=== PATIENT | male | born 1990 | race American Indian/Alaskan Native ===

== ENCOUNTER 2018-06-01 00:33 | Emergency (ER) | payer MEDICARE, MEDICAID ==
[2018-06-01 00:39] VITALS: BP 148/87
[2018-06-01 01:48] LABS: Basophils # (Auto) 0.1 K/mm3 (0.0-0.1); Basophils % (Auto) 0.9 % (0.0-1.8); Eosinophils # (Auto) 0.2 K/mm3 (0.0-0.4); Eosinophils % (Auto) 2.6 % (0.0-4.3); Hematocrit 42.9 % (35.5-45.6); Hemoglobin 14.1 gm/dl (11.8-15.2); Lymphocytes % (Auto) 40.2 % (13.4-35.0); Mean Corpuscular HGB Conc 33 % (32-34); Mean Corpuscular Volume 88 fl (84-94); Monocytes # (Auto) 0.4 K/mm3 (0.0-0.8); Platelet Count 223 K/mm3 (140-440); Red Cell Distribution Width 14.5 % (13.2-15.2)
[2018-06-01 01:59] LABS: BUN/Creatinine Ratio 10; Blood Urea Nitrogen 13 mg/dL (9-20); Calcium 9.5 mg/dL (8.4-10.2); Hemolysis Index 8
[2018-06-01 02:01] LABS: Bilirubin,Urine NEG (Negative); Blood,Urine NEG (Negative); Color,Urine Yellow (Yellow); Mucus,Urine 2+ /HPF; Sperm,Urine FEW /HPF (NP)
[2018-06-01 02:07] LABS: Amphetamine Screen,Urine PRESUMPTIVE NEGATIVE; Benzodiazepines Screen,Urine PRESUMPTIVE NEGATIVE; Methadone Screen,Urine PRESUMPTIVE NEGATIVE; Opiate Screen,Urine PRESUMPTIVE NEGATIVE
[2018-06-01 02:36] LABS: Cannabinoid Screen,Urine PRESUMPTIVE POSITIVE; Cocaine Screen,Urine PRESUMPTIVE POSITIVE
== END 2018-06-01 01:30 | disposition left against medical advice (07) ==
LOC: ED 00:33
DX: F32.9 Major depressive disorder, single episode, unspecified (principal); Z53.21 Procedure and treatment not carried out due to patient leaving prior to being seen by health care provider
CPT/HCPCS: 36415; 80048; 80307; 81001; 85025; G0480; 80320

== ENCOUNTER 2019-02-01 10:41 | Outpatient (CLI) | payer MEDICARE ==
[2019-02-01 11:43] LABS: BUN/Creatinine Ratio 8; Blood Urea Nitrogen 8 mg/dL (9-20); Calcium 8.9 mg/dL (8.4-10.2); Hemolysis Index 4
== END 2019-02-01 10:42 | disposition home or self-care (01) ==
LOC: LAB 10:41
PROVIDERS: ATTEND Clinical Nurse Specialist Psychiatric/Mental Health
DX: F31.9 Bipolar disorder, unspecified (principal)
CPT/HCPCS: 36415; 80048; 80178; 84443

== ENCOUNTER 2020-10-08 01:29 | Emergency (ER) | payer MEDICARE ==
[2020-10-08] MEDS ORDERED: LORazepam 2 MG/ML VIAL IM PRN (01:51)
[2020-10-08] MEDS ORDERED: diphenhydrAMINE 25 MG CAP PO PRN (01:51)
[2020-10-08] MEDS ORDERED: HALOPERIDOL LACTATE 5 MG/1 ML INJ IM PRN (01:51)
--- NOTE | 2020-10-08 01:57 | Emergency Department Report ---
ED General Adult HPI - General Chief complaint: Psych Stated complaint: psych PUI?: No Time Seen by Provider: 10/08/20 01:34 Source: patient, family, police, RN notes reviewed Mode of arrival: Wheelchair Limitations: Other (Acute psychosis and disorganized behavior) - History of Present Illness Initial comments: The patient was evaluated in the emergency department for symptoms described in the history of present illness. He/she was evaluated in the context of the global COVID-19 pandemic, which necessitated consideration that the patient might be at risk for infection with the virus that causes COVID-19. Institutional protocols and algorithms that pertain to the evaluation of patients at risk for COVID-19 are in a state of rapid change based on information released by regulatory bodies including the CDC and federal and state organizations. These policies and algorithms were followed during the patient's care in the emergency department. Please note that these policies, procedures and recommendations changed on a rapid basis. The patient is a 30-year-old gentleman. He is brought to the hospital by local police department on a 1013. The patient is not known to myself previously. History obtained from police matron, patient and his mother, who provides the bulk of the history. Patient's mother is Ms. Jin; [phone] Patient's past medical history includes HIV positive, on antiviral therapy and Biktarvy, reports undetectable viral load, also has a history of dissociative identity disorder, on lithium, Latuda, and trazodone. Patient's mother contacted 911 because the patient was very angry today, and throwing things. She reports that over the past few months, patient has not taken his psychiatric medication, and he appears to be cutting at home, throwing objects, getting angry, becoming paranoid, and becoming delusional. He also has thoughts of grandeur as per his mother. She reports the patient has stopped taking his psychiatric medications, hold because he thinks he knows best." His mother specifically tell me that she is concerned that the patient is a danger to himself and other people. She would not be comfortable with the patient coming back to the house tonight. Police Department were contacted, attempted to reason with the patient, and had to escalate to force, and taser. Police Department told me that the patient is currently under arrest, for trespassing. His mother indicates the symptoms have been gradually getting worse. The patient himself does not describe qualitative nature of symptoms, exacerbating factors, relieving factors or aggravating factors. His mother states no medical symptoms, no concern for overdose, although he has attempted suicide in the past a few times. She also reports the patient completed his COVID-19 vaccination series, on September 05, with the Pfizer vaccination. Please department tell me they have removed all taser barbs. -: Gradual - Related Data Allergies Allergy/AdvReac Type Severity Reaction Status Date / Time haloperidol [From Haldol] Allergy Unknown Verified 10/08/20 11:40 ziprasidone [From Geodon] Allergy Unknown Verified 10/08/20 11:40 ED Review of Systems ROS: Stated complaint: MEDICAL CLEARANCE Other details as noted in HPI Comment: Per mother Constitutional: denies: fever Respiratory: denies: cough Cardiovascular: denies: syncope Gastrointestinal: denies: nausea, vomiting, diarrhea Genitourinary: denies: frequency Psychiatric: as per HPI, anxiety ED Past Medical Hx - Social History Smoking Status: Current Every Day Smoker Substance Use Type: Alcohol ED Physical Exam - General General appearance: alert, anxious, in distress, obese - Head Head exam: Present: atraumatic, normocephalic - Eye Eye exam: Present: normal appearance, EOMI. Absent: nystagmus - ENT ENT exam: Present: normal exam, normal orophraynx, mucous membranes moist, normal external ear exam - Neck Neck exam: Present: normal inspection, full ROM. Absent: tenderness, meningismus - Respiratory Respiratory exam: Present: normal lung sounds bilaterally. Absent: respiratory distress, wheezes, rales, rhonchi, stridor, decreased breath sounds - Cardiovascular Cardiovascular Exam: Present: regular rate, normal rhythm, normal heart sounds. Absent: bradycardia, tachycardia, irregular rhythm, systolic murmur, diastolic murmur, rubs, gallop - GI/Abdominal GI/Abdominal exam: Present: soft. Absent: distended, tenderness, guarding, rebound, rigid, pulsatile mass - Rectal Rectal exam: Present: deferred - Extremities Exam Extremities exam: Present: normal inspection, full ROM, other (2+ pulses noted in the bilateral upper and lower extremities. There is no palpable cord. negative Homans sign. Muscular compartments are soft. The pelvis is stable.). Absent: pedal edema, calf tenderness - Back Exam Back exam: Present: normal inspection, full ROM. Absent: tenderness, CVA tend erness (R), CVA tenderness (L), paraspinal tenderness, vertebral tenderness - Neurological Exam Neurological exam: Present: alert, other (No facial droop. Tongue midline. Extraocular movements intact bilaterally. Facial sensation intact to light touch in V1, V2, V3 distribution bilaterally. 5 and a 5 strength in 4 extremities. Sensation intact to light touch in 4 extremities.) - Psychiatric Psychiatric exam: Present: agitated, anxious - Skin Skin exam: Present: warm, dry, intact, normal color. Absent: rash ED Course Vital Signs 10/08/20 10/08/20 10/08/20 02:21 12:42 20:27 Temperature 98.7 F 98.0 F 98.0 F Pulse Rate 105 H 88 98 H Respiratory 22 20 18 Rate Blood Pressure 115/70 112/65 131/91 [Left] O2 Sat by Pulse 100 98 98 Oximetry - Reevaluation(s) Reevaluation #1: 10/08/20 01:56 Differential diagnosis, including but not limited to: Medical clearance for psychiatric admission/evaluation, dissociative identity disorder, medical clearance for incarceration, personality disorder Assessment and plan: 30-year-old gentleman, who as per collateral information from mother, has not been taking his psychiatric medications, is violent, throwing objects, ny, paranoid, delusional, believes that people are watching him and chasing him, has thoughts of grandeur, and whom mother specifically is concerned that he is danger to himself and other people. Hold status ordered. As needed orders placed. Appropriate laboratory studies ordered. Mental health consultation requested. Have requested that nursing team reconcile home medications. Reevaluation #2: 10/08/20 04:13 Laboratory studies are unremarkable. Urinalysis is pending. Patient does not appear to have an immediate medical contraindication to psychiatric admission, evaluation, consultation and placement. Care was transferred to the [facility] ER physician to follow-up on urinalysis. ED Medical Decision Making - Lab Data Result diagrams: 10/08/20 03:09 10/08/20 03:09 Vital Signs 10/08/20 02:21 Temperature 98.7 F Pulse Rate 105 H Respiratory 22 Rate Blood Pressure 115/70 [Left] O2 Sat by Pulse 100 Oximetry Lab Results 10/08/20 10/08/20 10/08/20 Range/Units 03:09 03:09 03:09 WBC 13.3 H (4.5-11.0) K/mm3 RBC 4.68 (3.65-5.03) M/mm3 Hgb 13.4 (11.8-15.2) gm/dl Hct 40.7 (35.5-45.6) % MCV 87 (84-94) fl MCH 29 (28-32) pg MCHC 33 (32-34) % RDW 15.0 (13.2-15.2) % Plt Count 292 (140-440) K/mm3 Sodium 137 (137-145) mmol/L Potassium 3.6 (3.6-5.0) mmol/L Chloride 103.7 (98-107) mmol/L Carbon Dioxide 22 (22-30) mmol/L Anion Gap 15 mmol/L BUN 8 L (9-20) mg/dL Creatinine 1.2 (0.8-1.3) mg/dL Estimated GFR > 60 ml/min BUN/Creatinine Ratio 7 % Glucose 87 (75-100) mg/dL Calcium 8.8 (8.4-10.2) mg/dL Magnesium 2.30 (1.7-2.3) mg/dL Total Creatine Kinase 544 H (55-170) units/L Salicylates < 0.3 L (2.8-20.0) mg/dL Acetaminophen (10.0-30.0) ug/mL [place] 0.2 (0.0-1.2) mmol/L Plasma/Serum Alcohol (0-0.07) % 10/08/20 10/08/20 Range/Units 03:09 03:09 WBC (4.5-11.0) K/mm3 RBC (3.65-5.03) M/mm3 Hgb (11.8-15.2) gm/dl Hct (35.5-45.6) % MCV (84-94) fl MCH (28-32) pg MCHC (32-34) % RDW (13.2-15.2) % Plt Count (140-440) K/mm3 Sodium (137-145) mmol/L Potassium (3.6-5.0) mmol/L Chloride (98-107) mmol/L Carbon Dioxide (22-30) mmol/L Anion Gap mmol/L BUN (9-20) mg/dL Creatinine (0.8-1.3) mg/dL Estimated GFR ml/min BUN/Creatinine Ratio % Glucose (75-100) mg/dL Calcium (8.4-10.2) mg/dL Magnesium (1.7-2.3) mg/dL Total Creatine Kinase (55-170) units/L Salicylates (2.8-20.0) mg/dL Acetaminophen 5.0 L (10.0-30.0) ug/mL [place] (0.0-1.2) mmol/L Plasma/Serum Alcohol < 0.01 (0-0.07) % Critical care attestation.: If time is entered above; I have spent that time in minutes in the direct care of this critically ill patient, excluding procedure time. ED Disposition Clinical Impression: Medical clearance for psychiatric admission, Acute schizophrenia Disposition: [id number]/TX-[id number] PSY HOSP/PSY UNIT Is pt being admited?: No Does the pt Need Aspirin: No Condition: Good Referrals: PRIMARY CARE, [Primary Care Provider] - 3-5 Days
[2020-10-08] MEDS ORDERED: LORazepam 1 MG TAB PO ONE (01:58)
[2020-10-08 03:17] LABS: Hematocrit 40.7 % (35.5-45.6); Hemoglobin 13.4 gm/dl (11.8-15.2); Mean Corpuscular HGB Conc 33 % (32-34); Mean Corpuscular Volume 87 fl (84-94); Platelet Count 292 K/mm3 (140-440); Red Blood Count 4.68 M/mm3 (3.65-5.03)
[2020-10-08 03:41] LABS: BUN/Creatinine Ratio 7; Blood Urea Nitrogen 8 mg/dL (9-20); Calcium 8.8 mg/dL (8.4-10.2); Hemolysis Index 5
[2020-10-08] MEDS ORDERED: diphenhydrAMINE 50 MG/ML VIAL ONE (05:49)
--- NOTE | 2020-10-08 09:37 | Consultation ---
History of Present Illness - Reason for Consult Consult date: 10/08/20 Reason for consult: MHE Requesting physician: GERONIMO RODRIGUEZ - History of Present Psychiatric Illness Per ED Provider: The patient is a 30-year-old gentleman. He is brought to the hospital by local police department on a 1013. The patient is not known to m yself previously. History obtained from police clerk, patient and his mother, who provides the bulk of the history. Patient's mother is Ms. Jin; [phone] Patient's past medical history includes HIV positive, on antiviral therapy and Biktarvy, reports undetectable viral load, also has a history of dissociative identity disorder, on lithium, Latuda, and trazodone. Patient's mother conta cted 911 because the patient was very angry today, and throwing things. She reports that over the past few months, patient has not taken his psychiatric medication, and he appears to be cutting at home, throwing objects, getting angry, becoming paranoid, and becoming delusional. He also has thoughts of grandeur as per his mother. She reports the patient has stopped taking his psychiatric medications, hold because he thinks he knows best." His mother specifically tell me that she is concerned that the patient is a danger to himself and other people. She would not be comfortable with the patient coming back to the house tonight. Police Department were contacted, attempted to reason with the patient, and had to escalate to force, and taser. Police Department told me that the patient is currently under arrest, for trespassing. PSYCH HPI Patient is a 30-year-old single, currently unemployed -Filipino male with past psychiatric history of schizophrenia past medical history of HIV who currently resides with his brother brought to the ED accompanied by police due to aggressive and agitated behavior with worsening paranoia and delusion. Patient seen in isolation today patient appears to be half naked, and has urinated all over the floor. When asked patient why he is here patient still is complicated and keeps repeating that it is complicated up to 10 times in a loud manner. When also asked why he appeared on the floor patient stated that he had a bladder issue when he was a child, and then he decided to lock him up inside here without giving him access to use the restroom so he decided to do it on the floor. Patient appears very angry, uncooperative and loud, he presents as danger to other pt hence why he is in seclusion. PAST PSYCHIATRIC HISTORY Diagnoses: schizophrenia Suicide attempts or Self-harm behavior: yes Prior psychiatric hospitalizations: yes Substance Abuse history: n/a Previous psychiatric medications tried: yes Outpatient treatment: PAST MEDICAL HISTORY: HIV Family Psychiatric History: None reported or documented SOCIAL HISTORY Marital Status: single Living Arrangements: with mother Employment Status: unemployed Access to guns/weapons: n/a Education: n/a History of Abuse: n/a Legal History: n/a REVIEW OF SYSTEMS Constitutional: Negative for weight loss ENT: Negative for stridor Respiratory: Negative for cough or hemoptysis All other systems reviewed and are negative MENTAL STATUS EXAMINATION General Appearance and Behavior: Age appropriate, poor hygiene, not wearing appropriate clothes, poor eye contact, uncooperative with questioning. Cooperation: disengaged Psychomotor Behavior: Psychomotor agitation Mood: n/a Affect and affective range: euthymic, euphoric Thought Process: Illogical, echolalial Thought Content: delusional Speech: pressured, loud volume at times Intellectual Functioning: Average Suicidal Ideation: n/a Homicidal Ideation: n/a Impulse Control: Impaired Insight and Judgment: Limited insight and judgment Memory: impaired Attention: Divided attention impaired Orientation: Alert, Assessment and Plan - Psychiatric problem (1) Acute schizophrenia Current Visit: Yes Status: Acute F20.9 Treatment Plan Given history of medication non compliance, will start with geodon LAILA scheduled MEDICATIONS: Risks, benefits and alternatives of medications discussed with the patient, questions answered and consent obtained from patient. PSYCHOTHERAPY: Supportive psychotherapy provided MEDICAL: Per primary team DELIRIUM PRECAUTIONS: Please re-orient patient frequently, keep lights on during the day, and minimize benzodiazepines and opiates as these medications could worsen patient's confusion. INTERNET SPECIALIST: DISPOSITION: Do Recommend acute inpatient psychiatric hospitalization at this time. Case discussed with Dr. Crandall who agrees with current disposition LEGAL STATUS: 1013 FOLLOW-UP: Will follow Thank you for the consult. Please contact with any questions and/or concerns. Medications and Allergies Allergies Allergy/AdvReac Type Severity Reaction Status Date / Time No Known Allergies Allergy Unverified 06/01/18 01:15 Active Meds: Active Medications Diphenhydramine HCl (Diphenhydramine 25 Mg Cap) 50 mg PO QHS PRN PRN Reason: Insomnia Haloperidol Lactate (Haloperidol Lactate 5 Mg/1 Ml Inj) 5 mg IM Q6HR PRN PRN Reason: Agitation Lorazepam (Lorazepam 2 Mg/Ml Vial) 2 mg IM Q4HR PRN PRN Reason: Agitation Mental Status Exam - Vital signs Last Vital Signs Temp 98.7 F 10/08/20 02:21 Pulse 105 H 10/08/20 02:21 Resp 22 10/08/20 02:21 BP 115/70 10/08/20 02:21 Pulse Ox 100 10/08/20 02:21 Results Result Diagrams: 10/08/20 03:09 10/08/20 03:09 Abnormal lab results 10/08/20 10/08/20 10/08/20 Range/Units 03:09 03:09 03:09 WBC 13.3 H (4.5-11.0) K/mm3 BUN 8 L (9-20) mg/dL Total Creatine Kinase 544 H (55-170) units/L Salicylates < 0.3 L (2.8-20.0) mg/dL Acetaminophen (10.0-30.0) ug/mL 10/08/20 Range/Units 03:09 WBC (4.5-11.0) K/mm3 BUN (9-20) mg/dL Total Creatine Kinase (55-170) units/L Salicylates (2.8-20.0) mg/dL Acetaminophen 5.0 L (10.0-30.0) ug/mL All other labs normal. Assessment and Plan - Psychiatric problem (1) Acute schizophrenia Current Visit: Yes Status: Acute
[2020-10-08] MEDS ORDERED: ZIPRASIDONE MESYLATE 20 MG VIAL IM SCH (10:00)
[2020-10-08] MEDS ORDERED: WATER FOR INJ Sterile (PF) 10 ML ONE (11:08)
[2020-10-08 12:21] LABS: Amphetamine Screen,Urine Negative; Benzodiazepines Screen,Urine Negative; Cocaine Screen,Urine Negative; Methadone Screen,Urine Negative; Opiate Screen,Urine Negative
[2020-10-08 12:27] LABS: Bilirubin,Urine NEG (Negative); Blood,Urine NEG (Negative); Color,Urine Yellow (Yellow); Mucus,Urine FEW /HPF
[2020-10-08 12:40] LABS: Cannabinoid Screen,Urine PRESUMPTIVE POSITIVE
[2020-10-08] MEDS ORDERED: NICOTINE 21 MG/24 HR PATCH TD ONE (14:43)
[2020-10-08 20:43] VITALS: BP 131/91
== END 2020-10-08 21:53 ==
LOC: ED 01:29 → EEVIPCON 01:29 → ED 21:53
DX: F20.9 Schizophrenia, unspecified (principal); Z04.6 Encounter for general psychiatric examination, requested by authority; F17.200 Nicotine dependence, unspecified, uncomplicated; Z88.8 Allergy status to other drugs, medicaments and biological substances
CPT/HCPCS: 36415; 80048; 80178; 80307; 81001; 82550; 83735; 85027; 96372; 99285; J1630; J2060; J3486; 80320; G0480; J1200